=== PATIENT | female | born 1950 | race Caucasian/White ===

== ENCOUNTER 2018-06-07 15:42 | Emergency (ER) | payer MEDICARE ==
[2018-06-07] MEDS ORDERED: DEXAMETHASONE SOD PHOSPHATE 10MG/ML 1ML VIAL ONE (16:29)
[2018-06-07] MEDS ORDERED: KETOROLAC TROMETHAMINE 15MG/ML ONE (16:30)
== END 2018-06-07 16:55 | disposition home or self-care (01) ==
LOC: EDH 15:42
DX: G89.29 Other chronic pain (principal); M25.561 Pain in right knee; M25.562 Pain in left knee; M19.90 Unspecified osteoarthritis, unspecified site; E07.9 Disorder of thyroid, unspecified; Z90.49 Acquired absence of other specified parts of digestive tract; Z88.0 Allergy status to penicillin; Z88.1 Allergy status to other antibiotic agents; Z88.2 Allergy status to sulfonamides; Z88.5 Allergy status to narcotic agent; Z88.8 Allergy status to other drugs, medicaments and biological substances
CPT/HCPCS: 73562 ×2; 96372 ×2; 99283; J1100; J1885

== ENCOUNTER → 2024-05-09 | Outpatient (CLI) | payer MEDICARE ==
--- NOTE | 2024-05-09 18:42 | HMCSR ---
APPROVED REPORT EXAM: Two-dimensional and M-mode echocardiogram with Doppler and color Doppler. INDICATION ICD: Z51.11 Encounter for antineoplastic chemotherapy 2D Dimensions RVDd3.4 cmLVEF(%)66.2 (>50%)LVED Vol(simp.)95.5 mL IVSd1.1 (0.7-1.1cm)FS(%)36 %LVES Vol(simp.)32.4 mL LVDd4.4 (3.8-5.6cm)LA (2D)3.7 (1.6-4.0cm)LVEF(%, simp.)66 % PWd1.2 (0.7-1.1cm)Ao Root(2D)3.4 (2.0-3.7cm)LA ESV INDEX (4CH)24.60 mL/m2 IVSs1.4 cmLVOT diam2.3 (1.8-2.4cm)LA ESV INDEX (2CH)35.20 mL/m2 LVDs2.8 (2.5-4.0cm)LA ESV INDEX (BP)27.30 mL/m2 PWs1.6 cm Deformation Strain Apical 423.0 % Apical 224.0 % Apical 325.0 % Global Afojzx45.0 % M-Mode Dimensions EPSS0.6 cm LA (MM)3.7 (1.6-4.0cm) Ao Root(MM)3.1 (2.0-3.7cm) Aortic Valve AoV VTI0.3 mAo Mean GR5.0 mmHgLVOT VTI0.26 m ALAINA (VMAX)3.4 cm2AVA (VTI) 3.4 cm2 Mitral Valve MV E Vmax95.1 cm/sDECEL Mrcx287 ms MV A Vmax84.4 cm/sP 1/2 T93 ms E/A ratio1.1MVA (PHT)2.4 cm2 MR Max PG24 mmHg TDI E/E' Sjezdw84.4E/E' Mvomgmq54.4 Medial E' Peak V7.10 cm/sLateral E' Peak V6.60 cm/s Tricuspid Valve RAP (EST) 3 mmHgRVSP3.0 mmHg Left Ventricle The left ventricle is normal size. There is normal LV segmental wall motion. There is normal left willian tricular wall thickness. The LVEF is 66%. Indeterminate diastolic dysfunction. Right Ventricle The right ventricle is normal size. The right ventricular systolic function is normal. Atria The left atrium size is normal. The right atrium size is normal. Aortic Valve The aortic valve is normal in structure. No aortic regurgitation is present. There is no aortic valvu lar stenosis. Mitral Valve The mitral valve is normal in structure. There is no mitral valve regurgitation noted. There is no mi tral valve stenosis. Tricuspid Valve The tricuspid valve is normal in structure. There is trace of tricuspid valve regurgitation noted. Pulmonic Valve The pulmonary valve is normal in structure. There is no pulmonic valvular regurgitation. Great Vessels The aortic root is normal in size. The IVC is normal in size and collapses >50% with inspiration. Pericardium There is trace of pericardial effusion. Other Information Quality : Technically difficult due to body habitus Conclusion The LVEF is 66%.
== END | disposition home or self-care (01) ==
LOC: RAH 13:07
PROVIDERS: ATTEND Internal Medicine
DX: Z51.11 Encounter for antineoplastic chemotherapy (principal); C50.412 Malignant neoplasm of upper-outer quadrant of left female breast
CPT/HCPCS: 93306; 93356